=== PATIENT | male | born 1930 | race Caucasian/White ===

== ENCOUNTER → 2016-11-08 | Outpatient (CLI) | payer OTHER ==
[~2016-11-08] MED LIST: LEVO50TA11 PO; MELO-273 PO; TAMS0.4C32 PO; VITAMIN PO
== END | disposition home or self-care (01) ==
LOC: RADPV 14:42
PROVIDERS: ATTEND Internal Medicine Cardiovascular Disease
DX: I35.0 Nonrheumatic aortic (valve) stenosis (principal); I70.8 Atherosclerosis of other arteries
CPT/HCPCS: 93306